=== PATIENT | male | born 1970 | race African-American/Black ===

== ENCOUNTER 2018-01-18 07:51 | Inpatient (IN) | payer BC, SELFPAY ==
[2018-01-18 08:24] LABS: #Eosinphils 0.1 thou/uL (0.0-0.7); #Lymphocytes 2.2 thou/uL (1.20-3.40); #Monocytes 0.4 thou/uL (0.11-0.59); #Neutrophils 6.8 thou/uL (1.40-6.50); %Basophils 0.4 % (0.0-1.0); %Eosinophils 0.7 % (0.0-10.0); %Lymphocytes 23.1 % (21.0-51.0); %Monocytes 3.8 % (0.0-10.0); Hemoglobin 14.5 g/dL (14.0-18.0); Mean Corpuscular HGB CONC 35.2 g/dL (32.0-36.0); Mean Corpuscular Hemoglobin 29.9 pg (27.0-31.0); Mean Platelet Volume 8.8 fL (7.4-10.4); Platelet Count 246 thou/uL (130-400); RBC Distribution Width 12.7 % (11.5-14.5); Red Blood Cell (RBC) Count 4.85 mill/uL (4.70-6.10); White Blood Cell (WBC) Count 9.4 thou/uL (4.8-10.8)
[2018-01-18 08:46] LABS: ALT (SGPT) 30 U/L (8-55); AST (SGOT) 19 U/L (5-34); Alkaline Phosphatase 115 U/L (40-150); Anion Gap 18 mmol/L (10-20); BUN (Urea Nitrogen) 16 mg/dL (8.9-20.6); Bilirubin, Total 0.3 mg/dL (0.2-1.2); Calc. Creatinine Clearance 0 mL/min (70-130); Calcium 9.6 mg/dL (7.8-10.44); Carbon Dioxide 23 mmol/L (22-29); Chloride 93 mmol/L (98-107); Estimated GFR-MDRD 53; Globulin 3.8 g/dL (2.4-3.5); Potassium 4.7 mmol/L (3.5-5.1); Protein, Total 7.8 g/dL (6.0-8.3); Sodium 129 mmol/L (136-145)
[2018-01-18 08:53] LABS: Glucose 630 mg/dL (70-105)
[2018-01-18] MEDS ORDERED: Pantoprazole 40 MG VIAL ONE (09:31)
[2018-01-18 09:40] LABS: Bilirubin Negative (Negative); Blood, Urine Negative (Negative); Clarity CLEAR (Clear); Glucose, Urine (Dipstick) >=1000 mg/dL (Negative); Leukocyte Negative (Negative); Nitrite Negative (Negative); Protein, Urine (Dipstick) Negative (Neg-Trace); Specific Gravity, Urine 1.038 (1.002-1.036); Urobilinogen 0.2 mg/dL (0.2-1.0); pH, Urine 5.5 (5.0-9.0)
[2018-01-18 09:45] LABS: CKMB 1.9 ng/mL (0-6.6); Troponin I Less than 0.010 ng/mL (< 0.028)
[2018-01-18] MEDS ORDERED: Insulin Regular 300 UNITS/3 ML VIAL ONE (10:29)
[2018-01-18] MEDS ORDERED: Insulin Glargine 20 UNITS in Pre-Filled Syringe 1 EACH SC SCH (11:00)
[2018-01-18] MEDS ORDERED: Ondansetron HCl/PF 4 MG/2 ML Vial IVP PRN (11:16)
[2018-01-18] MEDS ORDERED: Ondansetron ODT 4 MG TAB SL PRN (11:16)
[2018-01-18] MEDS ORDERED: Sodium Chloride 0.9% 1,000 ML IV SCH (11:16)
[2018-01-18 11:24] VITALS: BMI 45.9
[2018-01-18] MEDS ORDERED: Dextrose 5% in Water 1,000 ML IV PRN (12:18)
[2018-01-18] MEDS ORDERED: Senokot 8.6 MG TAB PO PRN (12:18)
[2018-01-18] MEDS ORDERED: Dextrose 50% Abboject 50 ML SYRINGE SLOW IVP PRN (12:18)
[2018-01-18] MEDS ORDERED: Guaifenesin DM 100-10/5 ML UDCUP PO PRN (12:18)
[2018-01-18] MEDS ORDERED: Acetaminophen 325 MG TAB PO PRN (12:18)
[2018-01-18] MEDS: Sodium Chloride 0.9% 1,000 ML IV SCH ×3 (14:05→22:00)
--- NOTE | 2018-01-18 15:24 | HP ---
DATE OF ADMISSION: 01/18/2018 REASON FOR ADMISSION: New onset diabetes, uncontrolled. HISTORY OF PRESENT ILLNESS: The patient gives a history of having increased urination and increased thirst for almost a week now. He has had urination almost on the hour. He thinks that he is passing more urine than he is drinking. The patient also was feeling dehydrated, hence came to emergency ro om to check it out. On arrival, his serum sugars were 630. He has had new onset diabetes. No compl aints of chest pain, palpitation, PND or orthopnea. No complaints of burning urination. PAST MEDICAL/SURGICAL HISTORY: Morbid obesity, right knee ACL and MCL repair, Achilles tendon surger y. CURRENT MEDICATIONS: None. ALLERGIES: No known drug allergies. PERSONAL HISTORY: Does not abuse alcohol or drugs, smokes on social occasions with friends, not a re gular smoker. FAMILY HISTORY: Mother is on dialysis. Father at the age of 68 years and he does not recall th e exact causes of his . CODE STATUS: FULL. REVIEW OF SYSTEMS: The following complete review of systems was negative, unless otherwise mentioned in the HPI or below: Constitutional: Weight loss or gain, ability to conduct usual activities. Sk in: Rash, itching. Eyes: Double vision, pain. ENT/Mouth: Nose bleeding, neck stiffness, pain, te nderness. Cardiovascular: Palpitations, dyspnea on exertion, orthopnea. Respiratory: Shortness of breath, wheezing, cough, hemoptysis, fever or night sweats. Gastrointestinal: Poor appetite, abdom inal pain, heartburn, nausea, vomiting, constipation, or diarrhea. Genitourinary: Urgency, frequenc y, dysuria, nocturia. Musculoskeletal: Pain, swelling. Neurologic/Psychiatric: Anxiety, depressio n. Allergy/Immunologic: Skin rash, bleeding tendency. PHYSICAL EXAMINATION: GENERAL: The patient is a 47-year-old male who is currently not in any acute distress. VITAL SIGNS: Blood pressure 126/84, pulse 110 per minute, respiratory rate 18 per minute, temperatur e 97.9 degrees Fahrenheit, saturating 95% on room air. NECK: Supple. No elevated JVD. HEENT: Extraocular muscles intact. Pupils reacting to light. Oral cavity, mucous membranes are dry . No exudates or congestion. CARDIOVASCULAR: S1, S2 heard. Tachycardic. RESPIRATORY: Air entry 2+ bilateral. Scattered rhonchi plus no rales or wheezes. ABDOMEN: Soft. Bowel sounds heard. No tenderness, rigidity or guarding. EXTREMITIES: No peripheral edema or calf tenderness. VASCULAR SYSTEM: Peripheral pulses 2+ bilateral. No ischemic ulcerations or gangrene. CENTRAL NERVOUS SYSTEM: No gross focal deficits seen. The patient is alert, awake, oriented well. PSYCHIATRIC: The patient's mood is euthymic. No hallucinations or delusions. LABORATORY DATA: White count of 9, H&H 14 and 41, platelet count 246,000 with 72% neutrophils. Sodi um 129, chloride 93, serum bicarbonate 23, BUN 16, creatinine 1.6, serum glucose was 630, magnesium 1 .9. Liver enzymes within normal limits. First set of cardiac enzymes are negative. Albumin is 4.0. Urine glucose is more than 1000 mg per deciliter. Beta hydroxybutyrate levels were 1.7. CLINICAL IMPRESSION AND PLAN: The patient will be admitted to medical floor for new onset diabetes, which is uncontrolled, acute kidney injury due to moderate dehydration from diuresis due to hyperglyc emia. He will be on normal saline at 100 mL per hour. We will place him on metformin and glipizide along with Lantus 15 units subcu twice daily. The patient will be generously hydrated. We will chec k his electrolytes in the morning. He will be on aggressive sliding scale as well. The patient like kristel will need 2 days to get his blood sugars under control. He is also morbidly obese and has been co unseled with regards to healthy diet, exercise and lifestyle changes for the same.
[2018-01-18] MEDS: metFORMIN 500 MG TAB PO SCH (17:37)
[2018-01-18] MEDS: glipiZIDE 5 MG TAB PO SCH (17:37)
[2018-01-18] MEDS: HumaLOG 300 UNITS/3 ML VIAL SC PRN ×2 (17:38→19:50)
[2018-01-18] MEDS: Insulin Glargine 15 UNITS in Pre-Filled Syringe 1 EACH SC SCH (19:49)
[2018-01-18] MEDS: Famotidine 20 MG TAB PO SCH (19:50)
[2018-01-19] MEDS: Sodium Chloride 0.9% 1,000 ML IV SCH ×4 (01:20→17:09)
[2018-01-19 05:16] LABS: #Eosinphils 0.1 thou/uL (0.0-0.7); #Lymphocytes 2.9 thou/uL (1.20-3.40); #Monocytes 0.7 thou/uL (0.11-0.59); #Neutrophils 7.3 thou/uL (1.40-6.50); %Basophils 0.3 % (0.0-1.0); %Eosinophils 0.5 % (0.0-10.0); %Lymphocytes 26.7 % (21.0-51.0); %Monocytes 5.9 % (0.0-10.0); %Neutrophils 66.6 % (42.0-75.0); Mean Corpuscular HGB CONC 33.5 g/dL (32.0-36.0); Mean Corpuscular Hemoglobin 28.9 pg (27.0-31.0); Mean Corpuscular Volume 86.1 fl (80.0-94.0); Mean Platelet Volume 8.9 fL (7.4-10.4); Platelet Count 249 thou/uL (130-400); RBC Distribution Width 12.8 % (11.5-14.5); Red Blood Cell (RBC) Count 4.51 mill/uL (4.70-6.10); White Blood Cell (WBC) Count 10.9 thou/uL (4.8-10.8)
[2018-01-19 05:30] LABS: Anion Gap 10 mmol/L (10-20); BUN (Urea Nitrogen) 11 mg/dL (8.9-20.6); Calc. Creatinine Clearance 185 mL/min (70-130); Calcium 8.3 mg/dL (7.8-10.44); Carbon Dioxide 28 mmol/L (22-29); Chloride 103 mmol/L (98-107); Estimated GFR-MDRD 88; Glucose 226 mg/dL (70-105); Potassium 3.7 mmol/L (3.5-5.1); Sodium 137 mmol/L (136-145)
[2018-01-19] MEDS: HumaLOG 300 UNITS/3 ML VIAL SC PRN ×4 (05:31→20:09)
[2018-01-19] MEDS: Enoxaparin Sodium 40 MG/0.4 ML SYRINGE SC SCH (08:26)
[2018-01-19] MEDS: Famotidine 20 MG TAB PO SCH ×2 (08:26→20:07)
[2018-01-19] MEDS: metFORMIN 500 MG TAB PO SCH ×2 (08:26→17:06)
[2018-01-19] MEDS: glipiZIDE 5 MG TAB PO SCH ×2 (08:26→17:06)
[2018-01-19] MEDS: Insulin Glargine 15 UNITS in Pre-Filled Syringe 1 EACH SC SCH ×2 (08:26→20:08)
--- NOTE | 2018-01-19 11:43 | PDOC.PN ---
- Subjective Encounter Start Date: 01/19/18 Encounter Start Time: 09:25 Subjective: feels better, no sob - Objective Resuscitation Status: Resuscitation Status FULL:Full Resuscitation MAR Reviewed: Yes Vital Signs & Weight: Vital Signs (12 hours) Temp Pulse Resp BP Pulse Ox 01/19/18 08:00 97.6 F 82 16 01/19/18 07:31 97.6 F 82 16 113/76 98 01/19/18 04:09 98.4 F 84 20 126/83 98 01/19/18 00:00 98.4 F 82 18 126/82 96 Weight Weight 348 lb I&O: 01/18/18 01/19/18 01/20/18 06:59 06:59 06:59 Intake Total 640 Balance 640 Result Diagrams: 01/19/18 04:18 01/19/18 04:18 Additional Labs: Accuchecks 01/19/18 01/19/18 01/18/18 04:25 00:49 19:48 POC Glucose 214 H 275 H 339 H 01/18/18 16:49 POC Glucose 362 H Phys Exam - Physical Examination HEENT: PERRLA, moist MMs Neck: no JVD, supple Respiratory: no wheezing, no rales Cardiovascular: RRR, no significant murmur Gastrointestinal: soft, non-tender, positive bowel sounds Musculoskeletal: no edema, pulses present Neurological: non-focal, moves all 4 limbs Psychiatric: normal affect, A&O x 3 Dx/Plan (1) DM type 2 (diabetes mellitus, type 2) Status: Acute Qualifiers: Diabetes mellitus alf insulin use: without terminal makeup operator use Diabetes mellitus complication status: with hyperglycemia Qualified Code(s): E11.65 - Type 2 diabetes mellitus with hyperglycemia Comment: new onset (2) Morbid obesity Code(s): E66.01 - MORBID (SEVERE) OBESITY DUE TO EXCESS CALORIES Status: Chronic (3) RACHAEL (acute kidney injury) Code(s): N17.9 - ACUTE KIDNEY FAILURE, UNSPECIFIED Status: Acute Comment: resolving (4) Moderate dehydration Code(s): E86.0 - DEHYDRATION Status: Acute Comment: resolving due to hyperglycemia - Plan is on metformin, glypizide and lantus -: decrease iv fluids to 70mls/hr -: dc plan in am -: fingerstick glucose around 214-362 now -: to amb in hallway as tolerated * . Review of Systems - Medications/Allergies Allergies/Adverse Reactions: Allergies Allergy/AdvReac Type Severity Reaction Status Date / Time No Known Allergies Allergy Verified 01/18/18 11:31 Medications: Current Medications Acetaminophen (Tylenol) 650 mg PO Q4H PRN PRN Reason: Headache/Fever or Pain Dextrose/Water (Dextrose 50%) 25 gm SLOW IVP PRN PRN PRN Reason: Hypoglycemia Enoxaparin Sodium (Lovenox) 40 mg SC 0900 [facility] Last Admin: 01/19/18 08:26 Dose: 40 mg Famotidine (Pepcid) 20 mg PO BID [facility] Last Admin: 01/19/18 08:26 Dose: 20 mg Glipizide (Glucotrol) 5 mg PO BID-[facility] Last Admin: 01/19/18 08:26 Dose: 5 mg Glucagon (Glucagon) 1 mg IM PRN PRN PRN Reason: Hypoglycemia Guaifenesin/Dextromethorphan (Robitussin Dm) 15 ml PO Q4H PRN PRN Reason: Cough Dextrose/Water (D5w) 1,000 mls @ 0 mls/hr IV .Q0M PRN; As Directed PRN Reason: Hypoglycemia Insulin Glargine 15 units/ (Miscellaneous Medication) 0.15 mls @ 0 mls/hr SC BID [facility] Last Admin: 01/19/18 08:26 Dose: 0.15 mls Sodium Chloride (Normal Saline 0.9%) 1,000 mls @ 70 mls/hr IV .[id number] [facility] Last Admin: 01/19/18 08:27 Dose: Not Given Insulin Human Lispro (Humalog) 0 units SC .BEDTIME SLIDING SC PRN PRN Reason: Bedtime Correctional Scale Last Admin: 01/19/18 05:31 Dose: 2 unit Insulin Human Lispro (Humalog) 0 units SC .AGGRESSIVE SLIDING PRN PRN Reason: Aggressive Correctional Scale Last Admin: 01/18/18 17:38 Dose: 13 unit Metformin HCl (Glucophage) 500 mg PO BID-[facility] Last Admin: 01/19/18 08:26 Dose: 500 mg Senna (Senokot) 2 tab PO HSPRN PRN PRN Reason: Constipation Sodium Chloride (Flush - Normal Saline) 10 ml IVF Q12HR [facility] Last Admin: 01/19/18 08:27 Dose: Not Given Sodium Chloride (Flush - Normal Saline) 10 ml IVF PRN PRN PRN Reason: Saline Flush
[2018-01-20] MEDS: Sodium Chloride 0.9% 1,000 ML IV SCH (05:51)
[2018-01-20] MEDS ORDERED: metFORMIN 850 MG TAB PO SCH (08:00)
[2018-01-20 08:01] VITALS: BP 130/88; TEMP 98
[2018-01-20] MEDS: glipiZIDE 5 MG TAB PO SCH (08:51)
[2018-01-20] MEDS: Enoxaparin Sodium 40 MG/0.4 ML SYRINGE SC SCH (08:52)
[2018-01-20] MEDS: Insulin Glargine 15 UNITS in Pre-Filled Syringe 1 EACH SC SCH (08:53)
[2018-01-20] MEDS: Famotidine 20 MG TAB PO SCH (08:53)
--- NOTE | 2018-01-20 13:17 | PDOC.PN ---
- Subjective Encounter Start Date: 01/20/18 Encounter Start Time: 07:50 Subjective: feels good, no sob - Objective Resuscitation Status: Resuscitation Status FULL:Full Resuscitation MAR Reviewed: Yes Vital Signs & Weight: Vital Signs (12 hours) Temp Pulse Resp BP Pulse Ox 01/20/18 08:00 98.0 F 81 22 H 130/88 94 L 01/20/18 07:22 98.1 F 80 20 Weight Admit Weight 348 lb Weight 348 lb I&O: 01/19/18 01/20/18 01/21/18 06:59 06:59 06:59 Intake Total 640 Balance 640 Result Diagrams: 01/19/18 04:18 01/19/18 04:18 Additional Labs: Accuchecks 01/20/18 01/19/18 01/19/18 05:03 20:07 16:20 POC Glucose 207 H 252 H 258 H Phys Exam - Physical Examination HEENT: PERRLA, moist MMs Neck: no JVD, supple Respiratory: no wheezing, no rales Cardiovascular: RRR, no significant murmur Gastrointestinal: soft, non-tender, positive bowel sounds Musculoskeletal: no edema, pulses present Neurological: non-focal, moves all 4 limbs Psychiatric: normal affect, A&O x 3 Dx/Plan (1) DM type 2 (diabetes mellitus, type 2) Status: Acute Qualifiers: Diabetes mellitus manager intermediate insulin use: without manager intermediate use Diabetes mellitus complication status: with hyperglycemia Qualified Code(s): E11.65 - Type 2 diabetes mellitus with hyperglycemia Comment: new onset (2) Morbid obesity Code(s): E66.01 - MORBID (SEVERE) OBESITY DUE TO EXCESS CALORIES Status: Chronic (3) RACHAEL (acute kidney injury) Code(s): N17.9 - ACUTE KIDNEY FAILURE, UNSPECIFIED Status: Resolved (4) Moderate dehydration Code(s): E86.0 - DEHYDRATION Status: Acute Comment: resolving due to hyperglycemia - Plan hemostable -: dc pt home on metformin and glypizide -: low dose lisinopril for renal protection * .
--- NOTE | 2018-01-20 21:20 | DIS ---
DATE OF ADMISSION: 01/18/2018 DATE OF DISCHARGE: 01/20/2018 DISCHARGE DISPOSITION: To home. PRIMARY DISCHARGE DIAGNOSES: New onset diabetes mellitus type 2 with hyperglycemia, acute kidney inj ury with moderate dehydration secondary to hyperglycemia, resolved, morbid obesity with BMI of 45. PROCEDURES DONE DURING HOSPITALIZATION: H&H 13 and 38, platelet count 249. Initial serum glucose wa s 630, BUN 16, creatinine 1.6 on admission, BUN and creatinine of 11 and 1.0 on the . Beta hydro xybutyrate was 1.7. DISCHARGE MEDICATIONS: Aspirin 81 mg p.o. daily, glipizide 5 mg twice daily, metformin 850 mg twice daily, lisinopril 2.5 mg daily. ALLERGIES: No known drug allergies. DISCHARGE PLAN: Patient to check fingerstick glucose twice daily and record for 10 days to follow up with primary care physician. BRIEF COURSE DURING HOSPITALIZATION: Patient initially got admitted on the with complaints of g eneralized weakness with increased urination and thirst. He had serum glucose of 600+ and was a new diabetic. He was initially placed on aggressive sliding scale along with subcutaneous insulin and wa s slowly weaned into oral antihyperglycemic drugs. He also had acute kidney injury with moderate deh ydration on arrival due to hyperglycemia. He was aggressively hydrated and his electrolytes have rem ained stable. His renal function has come back to baseline. He was counseled regarding lifestyle ch anges, medication compliance and losing weight. He has been advised to check fingerstick glucose twi ce daily and record for 10 days to follow up with a new primary care physician, Dr. Burton. He is hemodynamically stable, ambulating well, and eating well prior to discharge.
== END 2018-01-20 10:59 | disposition home or self-care (01) | DRG 638 ==
LOC: ERS 07:51 → T4-A 11:16
PROVIDERS: ADMIT Internal Medicine; ATTEND Internal Medicine
DX: E11.65 Type 2 diabetes mellitus with hyperglycemia (principal); Z68.42 Body mass index [BMI] 45.0-49.9, adult; N17.9 Acute kidney failure, unspecified; E66.01 Morbid (severe) obesity due to excess calories; F17.210 Nicotine dependence, cigarettes, uncomplicated; Z79.84 Long term (current) use of oral hypoglycemic drugs; E86.0 Dehydration; I10 Essential (primary) hypertension
CPT/HCPCS: 36415; 36416; 80048; 80053; 81003; 82010; 82553; 83735; 84484; 85025; 96361; 96374; 96375; A4216; C9113; J1650; J1815

== ENCOUNTER 2018-10-17 21:53 | Emergency (ER) | payer BC, SELFPAY ==
[2018-10-17 22:17] LABS: #Basophils 0.1 thou/uL (0.0-0.2); #Eosinphils 0.1 thou/uL (0.0-0.7); #Lymphocytes 2.9 thou/uL (1.20-3.40); #Monocytes 0.5 thou/uL (0.11-0.59); #Neutrophils 5.9 thou/uL (1.40-6.50); %Basophils 0.9 % (0.0-1.0); %Eosinophils 0.7 % (0.0-10.0); %Lymphocytes 30.7 % (21.0-51.0); %Monocytes 5.7 % (0.0-10.0); Hemoglobin 13.4 g/dL (14.0-18.0); Mean Corpuscular HGB CONC 32.4 g/dL (32.0-36.0); Mean Corpuscular Hemoglobin 28.4 pg (27.0-31.0); Mean Corpuscular Volume 87.6 fL (78.0-98.0); Mean Platelet Volume 7.7 fL (7.4-10.4); Platelet Count 279 thou/uL (130-400); RBC Distribution Width 13.3 % (11.5-14.5); Red Blood Cell (RBC) Count 4.72 mill/uL (4.70-6.10); White Blood Cell (WBC) Count 9.5 thou/uL (4.8-10.8)
[2018-10-17 22:37] LABS: ALT (SGPT) 39 U/L (8-55); AST (SGOT) 24 U/L (5-34); Albumin 3.9 g/dL (3.5-5.0); Alkaline Phosphatase 77 U/L (40-150); Anion Gap 14 mmol/L (10-20); BUN (Urea Nitrogen) 15 mg/dL (8.9-20.6); Bilirubin, Total Less than 0.2 mg/dL (0.2-1.2); Calc. Creatinine Clearance 0 mL/min (70-130); Calcium 9.1 mg/dL (7.8-10.44); Carbon Dioxide 26 mmol/L (22-29); Chloride 101 mmol/L (98-107); Estimated GFR-MDRD 69; Globulin 3.6 g/dL (2.4-3.5); Glucose 235 mg/dL (70-105); Potassium 4.1 mmol/L (3.5-5.1); Protein, Total 7.5 g/dL (6.0-8.3); Sodium 137 mmol/L (136-145)
== END 2018-10-18 00:07 | disposition home or self-care (01) ==
LOC: ERS 21:53
DX: E11.9 Type 2 diabetes mellitus without complications (principal); F17.210 Nicotine dependence, cigarettes, uncomplicated
CPT/HCPCS: 36415; 36416; 80053; 85025; 99284